=== PATIENT | male | born 1995 | race Caucasian/White ===

== ENCOUNTER → 2017-07-21 | Outpatient (CLI) | payer BC, OTHER ==
--- NOTE | 2017-07-21 10:28 | DIAGNOSTIC IMAGING REPORT ---
MRI OF THE RIGHT KNEE CLINICAL HISTORY: Right knee pain. COMPARISON STUDY: Radiographs of the right knee dated 07/21/2017. TECHNIQUE: MRI of the right knee was performed utilizing proton density, T1, and T2-weighted sequences in the axial, sagittal, coronal planes. IV contrast was not administered for this examination. FINDINGS: Menisci: There is increased linear signal identified within the posterior horn of the medial meniscus. This does not clearly extend to the articular surface and could present intrasubstance tearing versus mild mucoid degeneration. The lateral meniscus is intact. Ligaments: The anterior cruciate ligament is intact. There is high-grade partial-thickness tearing of the posterior cruciate ligament. Some of the fibers remain intact. The medial collateral ligament is maintained. There is full-thickness rupture of the fibular collateral ligament. The iliotibial band is preserved. Extensor mechanism: The extensor mechanism is intact. Hoffa's fat pad is normal in appearance. Articular cartilage and bone: There are is mild marrow edema within the anterior aspect of the medial femoral condyle with a small overlying cartilage defect. This likely represents an impaction injury. Normal marrow signal is otherwise maintained throughout the visualized bony structures. The articular cartilage is otherwise preserved. A calcified fabella is incidentally noted. Joint effusion: There is a moderate joint effusion. Soft tissues: There is significant edema identified within the popliteus muscle. There is high-grade partial is tearing of the popliteus tendon at the musculotendinous junction. Fluid tracks between the popliteus and gastrocnemius muscles. There is mild edema identified within the lateral head of the gastrocnemius muscle and musculotendinous junction. Tearing of the lateral head of the gastric ileus tendon is suspected.. There is a tiny popliteal cyst. Soft tissue edema is present in the popliteal fossa and along the lateral aspect of the knee. IMPRESSION: 1. There is high-grade partial-thickness tear of the posterior cruciate ligament. 2. There is marked intramuscular edema identified within the body of popliteus, with a high-grade partial thickness tear of the popliteus tendon near the musculotendinous junction. 3. There is full-thickness rupture of the fibular collateral ligament. 4. There is mild marrow edema with a small overlying cartilage defect involving the anterior aspect of the medial femoral condyle, likely representing an impaction injury. 5. There is mild intramuscular edema within the lateral head of the gastrocnemius muscle. Tearing of the lateral gastrocnemius tendon is suspected. 6. Joint effusion. 7. There is linear increased signal identified within the posterior horn of the medial meniscus. This could represent intrasubstance tearing versus mucoid degeneration. The lateral meniscus appears maintained. Electronically signed by: Geo Sorenson M.D. 07/21/2017 10:26 AM Dictated Date/Time: 07/21/2017 10:13 AM
== END | disposition home or self-care (01) ==
LOC: C.MRI 08:57
PROVIDERS: ATTEND Physical Medicine & Rehabilitation Sports Medicine
DX: S83.521A Sprain of posterior cruciate ligament of right knee, initial encounter (principal); X58.XXXA Exposure to other specified factors, initial encounter

== ENCOUNTER → 2017-07-21 | Outpatient (CLI) | payer BC, OTHER | END | disposition home or self-care (01) | LOC: C.RDSM 08:25 | PROVIDERS: ATTEND Physical Medicine & Rehabilitation Sports Medicine | DX: M25.561 Pain in right knee (principal) ==